=== PATIENT | female | born 1980 | race Caucasian/White ===

== ENCOUNTER 2018-05-07 12:14 | Day surgery (SDC) | payer BC ==
[~2018-05-07] VITALS: Ht 162.6 cm; Wt 86.4 kg
[2018-05-07] VITALS (7 sets, daily range): BP systolic 117–122; BP diastolic 67–80; PULSE 68–88; TEMP 98
[~2018-05-07 12:14] MED LIST: ESTARYLLA 35 MC1 TAB PO
== END 2018-05-07 15:55 | disposition home or self-care (01) ==
LOC: SDCO 12:14
DX: R31.0 Gross hematuria (principal); R30.0 Dysuria; Z87.440 Personal history of urinary (tract) infections
CPT/HCPCS: J0690; J1100; J1885; J2405; J2704; J3010; J7120; Q9967